=== PATIENT | male | born 1965 | race Caucasian/White ===

== ENCOUNTER 2021-05-08 15:38 | Emergency (ER) | payer OTHER ==
[~2021-05-08] VITALS: Ht 167.6 cm; Wt 63.5 kg
[2021-05-08 15:45] VITALS: BP 136/82
--- NOTE | 2021-05-08 15:49 | NUR ---
Patient wheelchair assisted to bed 08.
[2021-05-08] MEDS ORDERED: ACETAMINOPHEN 325 MG TAB PO ONE (16:05)
--- NOTE | 2021-05-08 16:15 | NUR ---
56 Y/O M BIB SELF FROM HOME, PATIENT PRESENTS TO ED WITH R LEG PAIN UNDER PROSTHETIC SLEEVE FOR BELOW THE KNEE AMPUTATION. PT STATES HE HAS BEEN HAVING PAIN FOR 3 MO AND PAIN HAS BEEN WORSENING. DENIES N/V/D; SKIN IS PINK/WARM/DRY, PT HAS TWO SORES, REDNESS, BLEEDING WITH SLIGHT EDEMA NEAR KNEE STUMP; AAOX4 AMBULATES WITH DIFFICULTY; LUNGS CLEAR BL; HR EVEN AND REGULAR; PT DENIES ANY FEVER, CP, SOB, OR COUGH AT THIS TIME; PATIENT STATES PAIN OF 10/10 AT THIS TIME; VSS; PATIENT POSITIONED FOR COMFORT; HOB ELEVATED; BEDRAILS UP X2; BED DOWN. ER MD MADE AWARE OF PT STATUS. PMH: DM2, HTN NKA MED: INSULIN
[2021-05-08 16:20] LABS: BASOPHILS % (AUTO) 0.5 % (0.0-2.0); EOSINOPHILS % (AUTO) 0.3 % (0.0-4.0); HEMATOCRIT 33.3 % (36-52); HEMOGLOBIN 11.4 g/dL (12.0-18.0); LYMPHOCYTES # (AUTO) 1.3 K/uL (2.0-11.5); MEAN CORPUSCULAR HEMOGLOBIN 29 pg (27-31); MEAN CORPUSCULAR HGB CONC 34 g/dL (33-37); MEAN CORPUSCULAR VOLUME 84.3 fL (80-94); MONOCYTES # (AUTO) 0.5 K/uL (0.8-1.0); MONOCYTES % (AUTO) 11.4 % (1.7-9.3); NEUTROPHILS # (AUTO) 2.6 K/uL (1.8-7.7); NEUTROPHILS % (AUTO) 58.8 % (42.2-75.2); PLATELET COUNT (AUTO) 196 K/uL (140-450); RED BLOOD CELL COUNT(AUTO) 3.95 MIL/uL (4.20-6.10); RED CELL DISTRIBUTION WIDTH 14.3 % (11.6-13.7); WHITE BLOOD COUNT (AUTO) 4.3 K/uL (4.8-10.8)
[2021-05-08 16:48] LABS: ALBUMIN 3.4 g/dL (3.4-5.0); ANION GAP 14.3 (8-16); CARBON DIOXIDE 26.4 mmol/L (21-32); CREATININE 2.2 mg/dL (0.6-1.3); POTASSIUM 3.7 mmol/L (3.5-5.1); TOTAL BILIRUBIN 0.5 mg/dL (0.0-1.0)
[2021-05-08] MEDS ORDERED: ACET-10509 PO (17:09)
[2021-05-08] MEDS ORDERED: CEPH-588 PO (17:09)
[2021-05-08 17:31] VITALS: BP 136/82
--- NOTE | 2021-05-08 17:32 | NUR ---
Patient discharged with v/s stable. Written and verbal after care instructions given and explained. Patient alert, oriented and verbalized understanding of instructions. Ambulatory with steady gait. All questions addressed prior to discharge. ID band removed. Patient advised to follow up with PMD. Rx of ACETAMINOPHEN, CEPHALEXIN given. Patient educated on indication of medication including possible reaction and side effects. Opportunity to ask questions provided and answered.
== END 2021-05-08 17:32 | disposition home or self-care (01) ==
LOC: MED 15:38
DX: E11.621 Type 2 diabetes mellitus with foot ulcer (principal); I10 Essential (primary) hypertension; Z79.899 Other long term (current) drug therapy
CPT/HCPCS: 36415; 73562; 80053; 85025; 99284

== ENCOUNTER 2021-05-11 11:36 | Emergency (ER) | payer OTHER ==
[~2021-05-11] VITALS: Ht 167.6 cm; Wt 63.5 kg
[~2021-05-11 11:36] MED LIST: ACET-10509 PO; CEPH-588 PO
--- NOTE | 2021-05-11 11:45 | NUR ---
Patient ambulated with steady gait to bed 4.
[2021-05-11 11:49] VITALS: BP 139/61
--- NOTE | 2021-05-11 12:15 | NUR ---
56/M presents to ED with c/o left eye pain. Patient states 3 days ago "he believes debris got into his eye" and states the pain has been worsening, denies taking anything at home. Patients left eye appears red with drainage noted, denies vision loss or blurriness.
[2021-05-11] MEDS ORDERED: FLUORESCEIN OPTH STRIP 1 MG OP ONE (12:20)
[2021-05-11] MEDS ORDERED: TETRACAINE HCL/PF 0.5% OPTH 4 ML BTL OP ONE (12:20)
[2021-05-11] MEDS ORDERED: FLUORESCEIN OPTH STRIP 1 MG ONE (12:28)
[2021-05-11] MEDS ORDERED: TETRACAINE HCL/PF 0.5% OPTH 4 ML BTL ONE (12:28)
--- NOTE | 2021-05-11 12:33 | NUR ---
EYE ASSESSMENT BOTH 20/100 RIGHT 20/100 LEFT 20/70
[2021-05-11] MEDS ORDERED: POLY10SO OP (13:13)
[2021-05-11 13:22] VITALS: BP 139/61
--- NOTE | 2021-05-11 13:22 | NUR ---
Patient discharged with v/s stable. Written and verbal after care instructions given and explained. Patient alert, oriented and verbalized understanding of instructions. Ambulatory with steady gait. All questions addressed prior to discharge. ID band removed. Patient advised to follow up with PMD. Rx of Polytrim eye drops given. Patient educated on indication of medication including possible reaction and side effects. Opportunity to ask questions provided and answered.
[2021-05-14] MEDS ORDERED: HUM7030 SC (12:24)
== END 2021-05-11 13:22 | disposition home or self-care (01) ==
LOC: MED 11:36
DX: T15.02XA Foreign body in cornea, left eye, initial encounter (principal); H11.32 Conjunctival hemorrhage, left eye; H10.9 Unspecified conjunctivitis; E11.9 Type 2 diabetes mellitus without complications; I10 Essential (primary) hypertension; Z79.899 Other long term (current) drug therapy; X58.XXXA Exposure to other specified factors, initial encounter
CPT/HCPCS: 99283

== ENCOUNTER 2021-05-13 12:12 | Observation (INO) | payer OTHER, SELFPAY ==
[~2021-05-13] VITALS: Ht 172.7 cm; Wt 81.2 kg
[~2021-05-13 12:12] MED LIST changes: +POLY10SO OP
[2021-05-13 12:18] VITALS: BP 97/65
--- NOTE | 2021-05-13 12:20 | NUR ---
PT TAKEN TO BED 12.
[2021-05-13] MEDS ORDERED: TETRACAINE HCL/PF 0.5% OPTH 4 ML BTL ONE (13:24)
[2021-05-13] MEDS ORDERED: TETRACAINE HCL/PF 0.5% OPTH 4 ML BTL OP ONE (13:25)
[2021-05-13] MEDS ORDERED: TOMOMETER 1 DEV DEV MC ONE (13:25)
--- NOTE | 2021-05-13 13:31 | NUR ---
56/M presnets to ED c/o dizziness for the past few days. Pt was seen here about a week ago for left pain and states it is worsening. Pt states the redness has progressed, left eye continuously tearing and now pt states he is dizzy on and off. Pupils unequal. Dr. Dahl aware. Eye tray at bedside.
--- NOTE | 2021-05-13 13:49 | NUR ---
PT TAKEN TO CT VIA LEXUS
--- NOTE | 2021-05-13 13:54 | NUR ---
Helder torres in [facility] - 05/13/21 at 1910 by [id number] PT BACK FROM RAD
--- NOTE | 2021-05-13 13:54 | NUR ---
PT BACK FROM CT
[2021-05-13] MEDS ORDERED: MECLIZINE 25 MG TAB PO ONE (14:30)
[2021-05-13] MEDS ORDERED: DIAZEPAM PFS 10 MG/2 ML SYR IM ONE (15:15)
--- NOTE | 2021-05-13 16:01 | NUR ---
PT STATING HE IS STILL NOT FEELING ANY BETTER. DR GUADALUPE MADE AWARE.
--- NOTE | 2021-05-13 16:15 | NUR ---
XRAY BEDSIDE WITH PT
--- NOTE | 2021-05-13 16:26 | NUR ---
LORA NEW SWAB TAKEN BEDSIDE AND HANDED OVER TO MANAGER SHIP
[2021-05-13 16:56] LABS: BASOPHILS % (AUTO) 0.9 % (0.0-2.0); EOSINOPHILS % (AUTO) 0.2 % (0.0-4.0); HEMATOCRIT 36.2 % (36-52); HEMOGLOBIN 12.2 g/dL (12.0-18.0); LYMPHOCYTES # (AUTO) 1.2 K/uL (2.0-11.5); LYMPHOCYTES % (AUTO) 23.4 % (20.5-51.1); MEAN CORPUSCULAR HEMOGLOBIN 29 pg (27-31); MEAN CORPUSCULAR HGB CONC 34 g/dL (33-37); MEAN CORPUSCULAR VOLUME 84.8 fL (80-94); MONOCYTES # (AUTO) 0.7 K/uL (0.8-1.0); MONOCYTES % (AUTO) 13.5 % (1.7-9.3); NEUTROPHILS # (AUTO) 3.1 K/uL (1.8-7.7); PLATELET COUNT (AUTO) 231 K/uL (140-450); RED BLOOD CELL COUNT(AUTO) 4.27 MIL/uL (4.20-6.10); RED CELL DISTRIBUTION WIDTH 14.2 % (11.6-13.7)
[2021-05-13] MEDS ORDERED: ACETAMINOPHEN 325 MG TAB PO PRN (17:20)
[2021-05-13] MEDS ORDERED: ONDANSETRON 4 MG/2 ML VIAL IVP PRN (17:20)
[2021-05-13 17:31] LABS: ALBUMIN 3.4 g/dL (3.4-5.0); ANION GAP 14.9 (8-16); CARBON DIOXIDE 26.4 mmol/L (21-32); CREATININE 1.7 mg/dL (0.6-1.3); POTASSIUM 4.3 mmol/L (3.5-5.1); TOTAL BILIRUBIN 0.5 mg/dL (0.0-1.0)
[2021-05-13] MEDS: NACL 0.9% 1,000 ML IV SCH (17:38)
[2021-05-13] MEDS ORDERED: NACL 0.9% 1,000 ML IV ONE (17:40)
--- NOTE | 2021-05-13 17:40 | NUR ---
PT RESTING IN BED WITH EVEN AND UNLABORED RESPIRATIONS. WILL CONTINUE TO MONITOR
--- NOTE | 2021-05-13 19:15 | NUR ---
REPORT GIVEN TO AARTI CAMERON, TRANSFER OF CARE AT THIS TIME.
--- NOTE | 2021-05-13 19:28 | NUR ---
pt currently a/o x 4, gcs 15. able to speak in complete sentences. NAD at this time.
--- NOTE | 2021-05-13 21:10 | NUR ---
provided pt with urinal per request.
--- NOTE | 2021-05-13 21:15 | NUR ---
called for a page for Dr. Trinh regarding pt BP increased.
--- NOTE | 2021-05-13 21:20 | NUR ---
sw Dr. Gillespie regarding pt BP. he stated to placed an amlodipine order PO daily.
[2021-05-13] MEDS ORDERED: amLODIPine 5 MG TAB PO SCH (21:40)
[2021-05-13] MEDS ORDERED: amLODIPine 5 MG TAB PO STA (22:48)
[2021-05-14] VITALS (12 sets, daily range): BP systolic 76–153; BP diastolic 46–89
[2021-05-14] MEDS ORDERED: amLODIPine 5 MG TAB ONE (00:31)
--- NOTE | 2021-05-14 00:33 | NUR ---
NADR. pt currently asleep. arousable via verbal stimuli.
--- NOTE | 2021-05-14 00:39 | NUR ---
report given to Pepe CAMERON from [facility] unit. pt admitted under the care of Dr. Trinh and will be going to room 107A. pt currently a/o x 4, gcs 15. IV site patent, maintenance fluid running at rate of 75. NAD at this time.
--- NOTE | 2021-05-14 01:45 | NUR ---
RECEIVED CARE AND REPORT FROM PLUMBER GASFITTER, PATIENT ARRIVED TO BEDSIDE AT APPROXIMATELY 0145. PATIENT ALERT AND ORIENTED X4 TO PERSON, PLACE, TIME AND EVENT. PATIENT AMBULATORY WITH RN ASSISTANCE. PATIENT TRACKING WITH EYES. PATIENT HOB 30 DEGREES, AIRWAY OPEN, CLEAR AND MAINTAINABLE, DENIES SOB, PAIN, AND DENIES DIFFICULTY BREATHING. PATIENT HAS RIGHT FA 20G INTACT, FLUSHING WELL AND SECURED TO PATIENT. IV FLUIDS RUNNING INCLUDE NS 0.9% AT 75 ML/HR. PATIENT BALE TO USE BEDSIDE URINAL WITH RN ASSISTANCE. 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 PATIENT HAS A RIGHT LEG PROSTHESIS ON ARRIVAL, AT BEDSIDE WITH PATIENT. PATIENT ORIENTED TO ROOM ENVIRONMENT, BED LOCKED AND LOWERED INTO A POSITION OF SAFETY AND NURSE CALL LIGHT PLACED WITHIN REACH OF THE PATIENT. WILL CONTINUE TO CLOSELY MONITOR AND FREQUENTLY ROUND
--- NOTE | 2021-05-14 03:16 | NUR ---
PATIENT RESTING IN A POSITION OF COMFORT, NO OBVIOUS SIGNS OF DISTRESS OBSERVED WHILE AT BEDSIDE, VS STABLE, PATIENT TRYING TO SLEEP. HOB 30 DEGREES, AIRWAY OPEN, CLEAR AND MAINTAINABLE. WILL CONTINUE TO CLOSELY MONITOR AND FREQUENTLY ROUND.
--- NOTE | 2021-05-14 05:04 | NUR ---
PATIENT SLEEPING, AIRWAY OPEN, CLEAR AND MAINTAINABLE, PATENT. NO OBVIOUS SIGNS OF DISTRESS OBSERVED WHILE AT BEDSIDE. VS STABLE, WILL CONTINUE TO CLOSELY MONITOR AND FREQUENTLY ROUND.
--- NOTE | 2021-05-14 06:20 | NUR ---
MORNING CARE, DANNY CARE, ORAL CARE, HYGIENE, GOWN CHANGE, LINEN CHANGE AND SAFETY CHECKS PROVIDED. PATIENT VS STABLE, NO OBVIOUS SIGNS OF DISTRESS OBSERVED WHILE AT BEDSIDE. PATIENT TOLERATING THERAPIES WELL. REPOSITIONING ASSISTED WITH EVERY Q2 THROUGH OUT SHIFT. PATIENT RESTING WITH HOB 30 DEGREES, AIRWAY OPEN CLEAR AND MAINTAINABLE. BED LOCKED AND LOWERED INTO A POSITION OF SAFETY, CALL LIGHT WITHIN REACH OF PATIENT. DECREASED STIMULI IN ROOM ENVIRONMENT TO PROMOTE HEALING AND REST. EDUCATED PATIENT ON SAFETY MEASURES AND ALL ASPECTS OF PLAN OF CARE. WILL CONTINUE TO CLOSELY MONITOR AND FREQUENTLY ROUND.
--- NOTE | 2021-05-14 06:41 | NUR ---
PATIENT HAS BEEN SCREENED AND CATEGORIZED LOW NUTRITION RISK. PATIENT WILL BE SEEN WITHIN 7 DAYS OF ADMISSION. 05/20/[address]
[2021-05-14] MEDS: NACL 0.9% 1,000 ML IV SCH ×3 (06:43→23:38)
[2021-05-14 06:59] LABS: BASOPHILS % (AUTO) 0.5 % (0.0-2.0); EOSINOPHILS % (AUTO) 0.7 % (0.0-4.0); HEMATOCRIT 34.6 % (36-52); HEMOGLOBIN 11.6 g/dL (12.0-18.0); LYMPHOCYTES # (AUTO) 0.8 K/uL (2.0-11.5); LYMPHOCYTES % (AUTO) 16.3 % (20.5-51.1); MEAN CORPUSCULAR HEMOGLOBIN 29 pg (27-31); MEAN CORPUSCULAR HGB CONC 34 g/dL (33-37); MEAN CORPUSCULAR VOLUME 85.9 fL (80-94); MONOCYTES # (AUTO) 0.5 K/uL (0.8-1.0); MONOCYTES % (AUTO) 11.1 % (1.7-9.3); NEUTROPHILS # (AUTO) 3.4 K/uL (1.8-7.7); NEUTROPHILS % (AUTO) 71.4 % (42.2-75.2); PLATELET COUNT (AUTO) 240 K/uL (140-450); RED BLOOD CELL COUNT(AUTO) 4.02 MIL/uL (4.20-6.10); RED CELL DISTRIBUTION WIDTH 14.5 % (11.6-13.7); WHITE BLOOD COUNT (AUTO) 4.7 K/uL (4.8-10.8)
[2021-05-14 07:13] LABS: ANION GAP 13.5 (8-16); CARBON DIOXIDE 27.3 mmol/L (21-32); CREATININE 1.4 mg/dL (0.6-1.3); POTASSIUM 3.8 mmol/L (3.5-5.1)
--- NOTE | 2021-05-14 07:30 | NUR ---
REPORT AND CARE ENDORSED TO DAYSHIFT RN, VS STABLE.
--- NOTE | 2021-05-14 07:31 | NUR ---
RECEIVED REPORT FROM [employer] PROFESSIONAL NURSE. PATIENT LYING DOWN IN BED SLEEPING, AROUSABLE BY VOICE. NO DISTRESS NOTED. FIO2:45% RATE:18, PEEP: 7 WITH O2 SAT AT 93%. GABRIEL PICC LINE INTACT, PATENT, AND INFUSING IVF PER MD ORDERS. LANDEROS CATHETER IN PLACE. GTUBE IN PLACE ON TUBE FEEDING. REVIEWED PLAN OF CARE WITH PATIENT. REINFORCEMENT NEEDED. SAFETY MEASURES IN PLACE, CALL LIGHT WITHIN REACH. WILL CONTINUE TO MONITOR.
[2021-05-14] MEDS ORDERED: DEXTROSE 50% 50 ML SYR IVP PRN (08:45)
[2021-05-14] MEDS: MECLIZINE 25 MG TAB PO SCH ×3 (09:10→17:42)
[2021-05-14] MEDS: diazePAM 5 MG TAB PO SCH (09:10)
[2021-05-14] MEDS: ASPIRIN 81 MG TAB.CHEW PO SCH (09:10)
[2021-05-14] MEDS: amLODIPine 5 MG TAB PO SCH (09:11)
[2021-05-14] MEDS: metFORMIN 500 MG TAB PO SCH ×2 (09:13→17:42)
--- NOTE | 2021-05-14 09:13 | NUR ---
SCHEDULED MEDICATIONS DUE GIVEN. WILL CONTINUE TO MONITOR.
[2021-05-14] MEDS: BLOOD GLUCOSE MONITORING 1 DEV DEV FS SCH ×3 (11:30→21:20)
[2021-05-14] MEDS ORDERED: HUM7030 SC ×2 (12:24→15:37)
[2021-05-14] MEDS: INSULIN LISPRO SLIDING SCALE 100 UNITS/ML VIAL SUBQ PRN ×2 (13:11→21:23)
[2021-05-14] MEDS ORDERED: INSULIN NPH HUM/REG INSULIN HM 100 UNIT/ML 10 ML VIAL SUBQ SCH (14:00)
[2021-05-14] MEDS ORDERED: MECL-303 PO (15:37)
[2021-05-14] MEDS ORDERED: METF500T PO (15:37)
--- NOTE | 2021-05-14 17:12 | NUR ---
WOUND CARE EVALUATION NOTE: PT. ADMITTED WITH TUMOR LIKE GROWTH X2 TO RIGHT KNEE, PER PT. NEVER CHECK FOR SKIN CA, NEVER HAVE PAIN FROM THE 2 CLOSED WOUND, WOUND BED WITH FEW CRACKING SKIN AND WEEPING SMALL AMOUNT SEROUS DRAINAGE. RIGHT UPPER KNEE ABNORMAL GROWTH 3X3CM 1.5 CM TALL, MOIST NO ODOR, DANNY WOUND SKIN DRY AND INTACT. RIGHT LOWER KNEE ABNORMAL GROWTH 3.5X3.5CM 1.5 CM TALL, MOIST NO ODOR, DANNY WOUND SKIN DRY AND INTACT. RECOMMENDATIONS: CLEANSE WOUNDS WITH NS, PAT DRY APPLY SILVASORB GEL AND COVER WITH COMPOSITE DRESSING QD AND PRN IF SOILING. POC DISCUSSED WITH PRIMARY RN AND PT. PT. VERBALIZES UNDERSTANDING
--- NOTE | 2021-05-14 17:42 | NUR ---
SCHEDULED MEDICATIONS DUE GIVEN. WILL CONTINUE TO MONITOR.
--- NOTE | 2021-05-14 19:30 | NUR ---
RECEIVED CARE AND REPORT FROM DAYSHIFT RN. PATIENT ALERT AND ORIENTED X4 TO PERSON, PLACE, TIME AND EVENT. PATIENT TRACKING WITH EYES AND ALERT WHEN ASKING QUESTIONS/COMMUNICATING WITH PATIENT. PATIENT ON ROOM AIR OXYGEN SATURATION AT 96%, DENIES SHORTNESS OF BREATH, DENIES ANY DIFFICULTY BREATHING, DENIES PAIN/DISCOMFORT WHEN ASKED. PATIENT LAYING IN THE BED HOB 25 DEGREES, VS STABLE, NO OBVIOUS SIGNS OF DISTRESS OBSERVED. PATIENT HAS A RIGHT FA 20G RUNNING NS 0.9% AT 125 ML/HR, IV SITE INTACT, DRESSING DRY AND FLUSHING WELL. NO SIGNS OF INFILTRATION OR PAIN AT THE IV SITE. SKINS NON INTACT, RIGHT LEG SHOWS 2 LARGE SCABS, PATIENT HAS RIGHT LEG PROSTHESIS, RIGHT BKA AND LEFT EYE REDNESS. PATIENT ABLE TO AMBULATE/USE BEDSIDE URINAL WITH RN ASSISTANCE. BED LOCKED AND LOWERED INTO A POSITION OF SAFETY, SAFETY MEASURES IN PLACE, PATIENT BEING OFFLOADED FROM PRESSURE POINTS WITH USE OF PILLOWS AND FREQUENT REPOSITIONING Q2. PROMOTING A RESTFUL HEALING ENVIRONMENT FOR THE PATIENT WITH DECREASED STIMULI, EDUCATING PATIENT ON ALL PATIENT CARE AND CARE PLAN. CALL LIGHT WITH IN REACH OF THE PATIENT AND EDUCATED ON HOW TO USE. WILL CONTINUE TO REASSESS OFTEN, CLOSELY MONITOR AND FREQUENTLY ROUND THROUGHOUT THE SHIFT.
--- NOTE | 2021-05-14 20:55 | NUR ---
SCHEDULED MEDICATIONS GIVEN ORDERED BY MD, PATIENT TOLERATING THERAPIES WELL, VS STABLE, NO OBVIOUS SIGNS OF DISTRESS OBSERVED WHILE AT BEDSIDE. WILL CONTINUE TO CLOSELY MONITOR AND FREQUENTLY ROUND.
--- NOTE | 2021-05-14 21:35 | NUR ---
BLOOD GLUCOSE 242, PRN HUMALOG COVERAGE GIVEN ORDERED BY MD, VS STABLE, NO OBVIOUS SIGNS OF DISTRESS OBSERVED. WILL CONTINUE TO CLOSELY MONITOR AND FREQUENTLY ROUND.
--- NOTE | 2021-05-14 23:25 | NUR ---
PATIENT ASLEEP IN A POSITION OF COMFORT, VS STABLE, AIRWAY OPEN, CLEAR AND MAINTAINABLE. NO OBVIOUS SIGNS OF DISTRESS OBSERVED WHILE AT BEDSIDE. WILL CONTINUE TO CLOSELY MONITOR AND FREQUENTLY ROUND.
[2021-05-15] VITALS: BP 150/80
--- NOTE | 2021-05-15 01:36 | NUR ---
PATIENT ASLEEP IN POSITION OF COMFORT, HOB 30 DEGREES.PATIENT CONTINUES TO TOLERATE THERAPIES WELL, NO OBVIOUS SIGNS OF DISTRESS OBSERVED WHILE AT BEDSIDE. VS STABLE, RR 16, OXYGEN SATURATION 98%. WILL CONTINUE TO CLOSELY MONITOR AND FREQUENTLY ROUND.
[2021-05-15 04:00] VITALS: BP 154/86
[2021-05-15 05:37] LABS: BASOPHILS % (AUTO) 0.5 % (0.0-2.0); EOSINOPHILS # (AUTO) 0.1 K/uL (0-0.4); EOSINOPHILS % (AUTO) 1.3 % (0.0-4.0); HEMATOCRIT 31.3 % (36-52); HEMOGLOBIN 10.5 g/dL (12.0-18.0); LYMPHOCYTES # (AUTO) 1.3 K/uL (2.0-11.5); LYMPHOCYTES % (AUTO) 26.7 % (20.5-51.1); MEAN CORPUSCULAR HEMOGLOBIN 29 pg (27-31); MEAN CORPUSCULAR HGB CONC 34 g/dL (33-37); MEAN CORPUSCULAR VOLUME 85.5 fL (80-94); MONOCYTES # (AUTO) 0.8 K/uL (0.8-1.0); MONOCYTES % (AUTO) 17.1 % (1.7-9.3); NEUTROPHILS # (AUTO) 2.6 K/uL (1.8-7.7); NEUTROPHILS % (AUTO) 54.4 % (42.2-75.2); PLATELET COUNT (AUTO) 219 K/uL (140-450); RED BLOOD CELL COUNT(AUTO) 3.65 MIL/uL (4.20-6.10); RED CELL DISTRIBUTION WIDTH 14.2 % (11.6-13.7); WHITE BLOOD COUNT (AUTO) 4.9 K/uL (4.8-10.8)
[2021-05-15 05:44] LABS: ANION GAP 10.4 (8-16); CARBON DIOXIDE 26.3 mmol/L (21-32); CREATININE 1.3 mg/dL (0.6-1.3); POTASSIUM 3.7 mmol/L (3.5-5.1)
[2021-05-15] MEDS ORDERED: glipiZIDE 5 MG TAB PO SCH (06:30)
--- NOTE | 2021-05-15 06:55 | NUR ---
SCHEDULED MEDICATION GIVEN ORDERED BY .
[2021-05-15] MEDS: INSULIN LISPRO SLIDING SCALE 100 UNITS/ML VIAL SUBQ PRN ×2 (07:25→11:40)
[2021-05-15] MEDS: BLOOD GLUCOSE MONITORING 1 DEV DEV FS SCH ×2 (07:25→11:39)
--- NOTE | 2021-05-15 07:30 | NUR ---
ENDORSED CARE AND REPORT TO DAYSHIFT RN, VS STABLE.
[2021-05-15 08:00] VITALS: BP 143/86
[2021-05-15] MEDS: ASPIRIN 81 MG TAB.CHEW PO SCH (09:04)
[2021-05-15] MEDS: diazePAM 5 MG TAB PO SCH (09:05)
[2021-05-15] MEDS: metFORMIN 500 MG TAB PO SCH (09:06)
[2021-05-15] MEDS: MECLIZINE 25 MG TAB PO SCH ×2 (09:07→13:11)
[2021-05-15] MEDS: amLODIPine 5 MG TAB PO SCH (09:07)
[2021-05-15] MEDS ORDERED: CRUSHER, PILL MC ONE (09:08)
[2021-05-15] MEDS: INSULIN NPH HUM/REG INSULIN HM 100 UNIT/ML 10 ML VIAL SUBQ SCH ×2 (09:14→13:10)
--- NOTE | 2021-05-15 09:15 | NUR ---
BLOOD GLUCOSE 224, ADMINISTERED SCHEDULED MEDS, MEDS EDUCATION PROVIDED, PATIENT VERBALIZED UNDERSTANDING. PATIENT TOLERATED PO AND SUB WELL. DENIED OF ANY DISTRESS AT THIS TIME. SAFETY MEASURES IN PLACE.
[2021-05-15] MEDS: NACL 0.9% 1,000 ML IV SCH (11:10)
--- NOTE | 2021-05-15 11:40 | NUR ---
BLOOD GLUCOSE 185, 2 UNIT HUMALOG GIVEN. INFORMED PATIENT HE WILL BE DC HOME, PATIENT WAS AWARE AND SAID WILL CONTACT FAMILY FOR OUTPATIENT RECEPTIONIST AFTER LUNCH. WILL PREPARE DC PAPER. PATIENT IS AWAKE AND RESTING ON BED. NO SIGNS OF ACUTE DISTRESS NOTED. SAFETY MEASURES IN PLACE.
[2021-05-15 12:00] VITALS: BP 134/88
[2021-05-15] MEDS ORDERED: GAUZE TP SCH (13:00)
--- NOTE | 2021-05-15 13:11 | NUR ---
BLOOD GLUCOSE 231, SCHEDULED INSULIN 13 UNIT GIVEN AND SCHEDULED PO MED. WOUND CARE PROVIDED AND DISCHARGE WOUND PICTURE TAKEN. AWAITING FOR PATIENT'S FAMILY TO ARRIVE FOR DC. SAFETY MEASURES IN PLACE.
--- NOTE | 2021-05-15 14:12 | NUR ---
PATIENT IS RESTING ON BED. AWAITING FOR HIS FAMILY TO ARRIVE FOR DC. NO SIGNS OF ACUTE DISTRESS NOTED. SAFETY MEASURES IN PLACE.
--- NOTE | 2021-05-15 15:06 | NUR ---
DISCHARGE EDUCATION PROVIDED TO PATIENT AT BEDSIDE, EDUCATED PATIENT TO FOLLOW UP WITH PCP AFTER DC FROM THE HOSPITAL, MEDICATION REGIMENS, SIDE EFFECTS, PAIN MANAGEMENT, DIABETES MANAGEMENT, DIET, AND WOUND CARE, PATIENT VERBALIZED UNDERSTANDING. PATIENT WAS AWARE THAT PRESCRIBED MEDICATION SEND TO PREFERRED PHARMACY [facility]. PATIENT CHANGED INTO HIS OWN CLOTHES AND PACKED ALL HIS BELONGING. REMOVED IV, CANNULA INTACT, NO BLEEDING. REMOVED TELE MONITOR AND REMOVED TO MONITOR TEACH. REMOVED ALL ARM BANDS. EDUCATION HANDOUT IN [place] PROVIDED TO PATIENT. DC PACKET PROVIDED. WOUND PICTURES TAKEN. ESCORTED PATIENT TO FRONT LOBBY WITH WHEEL CHAIR. PATIENT IS GOING TO DC HOME AT THIS TIME IN STABLE CONDITION.
== END 2021-05-15 15:00 | disposition home or self-care (01) ==
LOC: MED 12:12 → MTU 17:20 → MMU 05-14 01:04
PROVIDERS: ADMIT Internal Medicine; ATTEND Internal Medicine
DX: R42 Dizziness and giddiness (principal); N28.9 Disorder of kidney and ureter, unspecified; E11.65 Type 2 diabetes mellitus with hyperglycemia; I10 Essential (primary) hypertension; E87.1 Hypo-osmolality and hyponatremia; Z79.4 Long term (current) use of insulin; Z79.899 Other long term (current) drug therapy
CPT/HCPCS: 36415; 70450; 71045; 80048; 80053; 82948; 83036; 84484; 85025; 87081; 87426; 93005; 96360; 96361; 96372; 97163; 97530; 99285; G0378; J1815; J3360; J8597